=== PATIENT | female | born 1930 | race Caucasian/White ===

== ENCOUNTER → 2017-10-04 | Outpatient (CLI) | payer OTHER ==
[~2017-10-04] MED LIST: ALEVE220 M1; AMBEREN; ASPIRIN325; AUGMENTIN 875875 M1; DILTIAZEM ER240 M1 PO; FISH OIL 1,001000 M1 PO; HYDROCHLOROTHIA25 M1 PO; NORCO 5-325 TA1 EACH PO; VICODIN ES TAB1 EACH; VITAMIN D-32000 UNIT PO
== END ==
LOC: M.RAD 14:44
DX: M47.896 Other spondylosis, lumbar region (principal); M47.898 Other spondylosis, sacral and sacrococcygeal region; I70.0 Atherosclerosis of aorta; M25.551 Pain in right hip; M25.552 Pain in left hip; Z91.81 History of falling